=== PATIENT | male | born 1955 | race Caucasian/White ===

== ENCOUNTER 2020-11-21 10:52 | Day surgery (SDC) | payer MEDICARE ==
[2020-11-20 13:20] VITALS: BMI 19.8
[2020-11-21] MEDS ORDERED: PROPOFOL 20 ML ONE (13:42)
--- NOTE | 2020-11-21 16:19 | OP ---
DATE OF PROCEDURE: 11/21/2020 PRIMARY CARE PHYSICIAN: Lena Ellsworth MD REFERRING WASTE MANAGEMENT SPECIALIST: Delon Irvin MD PREOPERATIVE DIAGNOSIS: Persistent atrial fibrillation. POSTOPERATIVE DIAGNOSIS: Sinus rhythm. PROCEDURE PERFORMED: Direct current cardioversion. ANESTHESIA: Sedation. SPECIMENS: None. REGIONAL FORESTER: None. ESTIMATED BLOOD LOSS: None. COMPLICATIONS: None. DESCRIPTION OF PROCEDURE: The patient was on Eliquis without any missed doses for one month prior to the procedure. After discussion of the risks, benefits, and alternatives, the patient was sedated by Anesthesia. A 200-joule synchronized shock was performed, which did not result in sinus rhythm. Therefore, a 360-joule synchronized shock was performed, which resulted in sinus rhythm. The patient tolerated procedure well and was discharged home in good condition. CONCLUSION: 1. Persistent atrial fibrillation. 2. Successful cardioversion. PLAN: 1. Continue amiodarone 100 mg daily. 2. Continue Eliquis 5 mg b.i.d. 3. Follow up with ADRIANA Cresw on 12/06/2020 at 9:00 a.m. Job ID: [id number]
--- NOTE | 2020-11-21 21:06 | EKG ---
Test Reason : POST CARDIOVERSION Blood Pressure : / mmHG Vent. Rate : 067 BPM Atrial Rate : 067 BPM P-R Int : 218 ms QRS Dur : 090 ms QT Int : 402 ms P-R-T Axes : 064 -49 080 degrees QTc Int : 424 ms Sinus rhythm with 1st degree A-V block with occasional Premature ventricular complexes Left axis deviation Septal infarct , age undetermined Abnormal ECG No previous ECGs available Confirmed by Rudolph ANSARI ([id number]) on 11/21/2020 9:05:42 PM Referred By: JOSE DAVID Confirmed By:Rudolph ANSARI
== END 2020-11-21 14:45 | disposition home or self-care (01) ==
LOC: SDC 10:52
PROVIDERS: ATTEND Internal Medicine Cardiovascular Disease
PROC: 5A2204Z Restoration of Cardiac Rhythm, Single (ICD-10-PCS; principal; 2020-11-21)
DX: I48.19 Other persistent atrial fibrillation (principal); I50.22 Chronic systolic (congestive) heart failure; I25.10 Atherosclerotic heart disease of native coronary artery without angina pectoris; E78.5 Hyperlipidemia, unspecified; E10.9 Type 1 diabetes mellitus without complications; I42.9 Cardiomyopathy, unspecified; Z87.891 Personal history of nicotine dependence; Z79.01 Long term (current) use of anticoagulants; Z79.82 Long term (current) use of aspirin; Z79.84 Long term (current) use of oral hypoglycemic drugs; Z79.899 Other long term (current) drug therapy; Z98.890 Other specified postprocedural states
CPT/HCPCS: 92960; 93005; 93010; J2704